=== PATIENT | male | born 1955 | race Caucasian/White ===

== ENCOUNTER 2019-05-27 15:01 | Observation (INO) | payer MEDICARE ==
[2019-05-27] MEDS ORDERED: SODIUM CHLORIDE 0.9% 1,000 ML IV STA (16:03)
[2019-05-27] MEDS ORDERED: SODIUM CHLORIDE 0.9% 500 ML 500 ML IV STA (16:07)
[2019-05-27 16:10] LABS: Basophils # (A) 0.1 k/uL (0-0.2); Basophils % (A) 1 %; Eosinophils % (A) 0 %; HGB 15.2 gm/dL (13.0-17.5); Lymphocytes # (A) 1.4 k/uL (1.0-4.8); Lymphocytes % (A) 13 %; MCH 33.7 pg (25.0-35.0); MCV 102.2 fL (80.0-100.0); Macrocytosis Slight; Mean Platelet Volume 7.2; Monocytes % (A) 9 %; Neutrophils # (A) 7.7 k/uL (1.3-7.7); Neutrophils % (A) 75 %; Platelet Count 162 k/uL (150-450); RBC 4.51 m/uL (4.30-5.90); RDW 13.3 % (11.5-15.5); WBC 10.3 k/uL (3.8-10.6)
[2019-05-27 16:29] LABS: ALT 22 U/L (4-49); AST 59 U/L (17-59); African American GFR (CKD) >90 (>60 ml/min/1.73 sqM); Albumin 2.9 g/dL (3.5-5.0); Alkaline Phosphatase 138 U/L (38-126); Anion Gap 9 mmol/L; Bilirubin,Unconjugated 1.4 mg/dL (0.0-1.1); Blood Urea Nitrogen 6 mg/dL (9-20); Calcium 8.3 mg/dL (8.4-10.2); Carbon Dioxide 21 mmol/L (22-30); Chloride 101 mmol/L (98-107); Glucose 107 mg/dL (74-99); Non-African American GFR(CKD) >90 (>60 ml/min/1.73 sqM); Potassium 4.2 mmol/L (3.5-5.1); Sodium 131 mmol/L (137-145); Total Bilirubin 2.4 mg/dL (0.2-1.3); Total Protein 7.3 g/dL (6.3-8.2)
--- NOTE | 2019-05-27 16:47 | ED ---
General Adult HPI - General Chief complaint: Recheck/Abnormal Lab/Rx Stated complaint: Needs stomach drained, sent by Time Seen by Provider: 05/27/19 16:03 Source: patient Mode of arrival: ambulatory Limitations: no limitations - History of Present Illness Initial comments: Dictation was produced using [employer] dictation software. please excuse any grammatical, word or spelling errors. Chief Complaint: 63-year-old male with past medical history of alcohol abuse, liver cirrhosis presents with abdominal distention. History of Present Illness: C3-year-old male he has past medical history of cirrhosis and liver disease. Patient states that 4-5 years ago he had paracentesis performed at [facility]. Since then patient has not needed any sort paracenteses. Patient quit drinking at that time. As of late patient has been drinking alcohol on a regular basis. He states he is drinking approximately 3-4 beers a day. Denies any history of EtOH withdrawals. Last beer intake was earlier today. Patient denies any fever, chills or night sweats. States that he came today because he's been putting off to have paracen tesis performed. The ROS documented in this emergency department record has been reviewed and confirmed by me. Those systems with pertinent positive or negative responses have been documented in the HPI. All other systems are other negative and/or noncontributory. PHYSICAL EXAM: General Impression: Alert and oriented x3, not in acute distress HEENT: Normocephalic atraumatic, extra-ocular movements intact, pupils equal and reactive to light bilaterally, mucous membranes moist. Cardiovascular: Heart regular rate and rhythm, S1&S2 audible, no murmurs, rubs or gallops Chest: Lungs clear to auscultation bilaterally, no rhonchi, no wheeze, no rales Abdomen: Bowel sounds present, distended abdomen, positive fluid wave Musculoskeletal: Pulses present and equal in all extremities, no peripheral edema Motor: no focal deficits noted Neurological: CN II-XII grossly intact, no focal motor or sensory deficits noted Skin: Intact with no visualized rashes Psych: Normal affect and mood ED course: 63-year-old male presents with clinical presentation consistent with symptomatic ascites vital signs upon arrival shows heart rate of 111 rest of vital signs within acceptable limits. Abdomen evaluation obtained. CBC unremarkable. Coag panel unremarkable. Metabolic panel shows sodium 131. Patient does have a lactic acidosis of 3.3 however this is secondary to liver disease. Alk phos 138. No concern for spontaneous bacterial peritonitis. Patient with a presentation consistent with symptomatic ascites. Patient will be admitted with consultation to interventional radiology for paracentesis. Discussed patient case with Dr. Frey is willing to accept patients care. - Related Data Home Medications Medication Instructions Recorded Confirmed No Known Home Medications 05/27/19 05/27/19 Allergies Allergy/AdvReac Type Severity Reaction Status Date / Time No Known Allergies Allergy Verified 05/27/19 16:59 Review of Systems ROS Statement: Those systems with pertinent positive or pertinent negative responses have been documented in the HPI. ROS Other: All systems not noted in ROS Statement are negative. Past Medical History Past Medical History: Liver Disease History of Any Multi-Drug Resistant Organisms: None Reported Past Surgical History: No Surgical Hx Reported Past Psychological History: No Psychological Hx Reported Smoking Status: Current every day smoker Past Alcohol Use History: Daily Past Drug Use History: None Reported General Exam Limitations: no limitations Course Vital Signs 05/27/19 05/27/19 05/27/19 15:16 15:20 16:15 Temperature 97.9 F 98.1 F Pulse Rate 111 H 99 Respiratory 22 28 H 20 Rate Blood Pressure 150/88 139/91 O2 Sat by Pulse 96 97 Oximetry Medical Decision Making - Lab Data Result diagrams: 05/27/19 15:48 05/27/19 15:48 Lab Results 05/27/19 05/27/19 05/27/19 Range/Units 15:48 15:48 15:48 WBC 10.3 (3.8-10.6) k/uL RBC 4.51 (4.30-5.90) m/uL Hgb 15.2 (13.0-17.5) gm/dL Hct 46.0 (39.0-53.0) % MCV 102.2 H (80.0-100.0) fL MCH 33.7 (25.0-35.0) pg MCHC 33.0 (31.0-37.0) g/dL RDW 13.3 (11.5-15.5) % Plt Count 162 (150-450) k/uL Neutrophils % 75 % Lymphocytes % 13 % Monocytes % 9 % Eosinophils % 0 % Basophils % 1 % Neutrophils # 7.7 (1.3-7.7) k/uL Lymphocytes # 1.4 (1.0-4.8) k/uL Monocytes # 1.0 (0-1.0) k/uL Eosinophils # 0.0 (0-0.7) k/uL Basophils # 0.1 (0-0.2) k/uL Macrocytosis Slight PT (9.0-12.0) sec INR (<1.2) APTT (22.0-30.0) sec Sodium 131 L (137-145) mmol/L Potassium 4.2 (3.5-5.1) mmol/L Chloride 101 (98-107) mmol/L Carbon Dioxide 21 L (22-30) mmol/L Anion Gap 9 mmol/L BUN 6 L (9-20) mg/dL Creatinine 0.63 L (0.66-1.25) mg/dL Est GFR (CKD-EPI)AfAm >90 (>60 ml/min/1.73 sqM) Est GFR (CKD-EPI)NonAf >90 (>60 ml/min/1.73 sqM) Glucose 107 H (74-99) mg/dL Plasma Lactic Acid Paul 3.3 H* (0.7-2.0) mmol/L Calcium 8.3 L (8.4-10.2) mg/dL Total Bilirubin 2.4 H (0.2-1.3) mg/dL Conjugated Bilirubin 0.0 (0.0-0.3) mg/dL Unconjugated Bilirubin 1.4 H (0.0-1.1) mg/dL Delta Bilirubin 1.0 H (0.0-0.2) mg/dL AST 59 (17-59) U/L ALT 22 (4-49) U/L Alkaline Phosphatase 138 H (38-126) U/L Total Protein 7.3 (6.3-8.2) g/dL Albumin 2.9 L (3.5-5.0) g/dL Lipase 155 (23-300) U/L 05/27/19 Range/Units 15:48 WBC (3.8-10.6) k/uL RBC (4.30-5.90) m/uL Hgb (13.0-17.5) gm/dL Hct (39.0-53.0) % MCV (80.0-100.0) fL MCH (25.0-35.0) pg MCHC (31.0-37.0) g/dL RDW (11.5-15.5) % Plt Count (150-450) k/uL Neutrophils % % Lymphocytes % % Monocytes % % Eosinophils % % Basophils % % Neutrophils # (1.3-7.7) k/uL Lymphocytes # (1.0-4.8) k/uL Monocytes # (0-1.0) k/uL Eosinophils # (0-0.7) k/uL Basophils # (0-0.2) k/uL Macrocytosis PT 11.9 (9.0-12.0) sec INR 1.1 (<1.2) APTT 31.3 H (22.0-30.0) sec Sodium (137-145) mmol/L Potassium (3.5-5.1) mmol/L Chloride (98-107) mmol/L Carbon Dioxide (22-30) mmol/L Anion Gap mmol/L BUN (9-20) mg/dL Creatinine (0.66-1.25) mg/dL Est GFR (CKD-EPI)AfAm (>60 ml/min/1.73 sqM) Est GFR (CKD-EPI)NonAf (>60 ml/min/1.73 sqM) Glucose (74-99) mg/dL Plasma Lactic Acid Paul (0.7-2.0) mmol/L Calcium (8.4-10.2) mg/dL Total Bilirubin (0.2-1.3) mg/dL Conjugated Bilirubin (0.0-0.3) mg/dL Unconjugated Bilirubin (0.0-1.1) mg/dL Delta Bilirubin (0.0-0.2) mg/dL AST (17-59) U/L ALT (4-49) U/L Alkaline Phosphatase (38-126) U/L Total Protein (6.3-8.2) g/dL Albumin (3.5-5.0) g/dL Lipase (23-300) U/L Disposition Clinical Impression: Ascites Disposition: ADMITTED IP TO THIS HOSP Condition: Fair Referrals: Lanre Parisi MD [Primary Care Provider] - 1-2 days Decision Time: 17:46
[2019-05-27 16:55] LABS: INR 1.1 (<1.2); Partial Thromboplastin Time 31.3 sec (22.0-30.0); Prothrombin Time 11.9 sec (9.0-12.0)
[2019-05-27] MEDS ORDERED: NALOXONE 0.4 MG/ML 1 ML VIAL IV PRN (17:44)
[2019-05-27] MEDS ORDERED: SODIUM CHLORIDE 0.9% 1,000 ML IV SCH (17:45)
[2019-05-27] MEDS: DIAZEPAM 2 MG TAB PO SCH (22:11)
[2019-05-28] MEDS: DIAZEPAM 2 MG TAB PO SCH ×3 (09:03→20:38)
--- NOTE | 2019-05-28 09:15 | US ---
EXAMINATION TYPE: US abdomen limited DATE OF EXAM: 05/28/2019 COMPARISON: NONE CLINICAL HISTORY: assess for fluid pocket please. Large amount of ascites visualized. Largest fluid pocket appears to be in the right lower quadrant al though fluid is present throughout all 4 quadrants. IMPRESSION: 1. Large appearing volume ascites present.
[2019-05-28] MEDS: ALBUMIN HUMAN 25% 50 ML in EMPTY BAG 1 BAG IVPB SCH ×4 (12:47→15:44)
--- NOTE | 2019-05-28 13:27 | US ---
Therapeutic and diagnostic paracentesis. DATE OF EXAM: 05/28/2019 CLINICAL HISTORY: Ascites The procedure was discussed with the patient. The risks, complications, benefits, and alternatives we re discussed and any questions were answered. Informed consent was obtained. The patient was placed s upine on the ultrasound table and prepped and draped in the usual sterile fashion. All elements of maximal barrier technique were utilized. Under ultrasound guidance, access into the right lower quadrant was obtained, via the paracentesis catheter system and direct ultrasound guidanc e. Approximately 8.7 liters of straw-colored fluid was removed. The patient was stable throughout the pr ocedure and remained stable upon discharge from Department of Radiology. IMPRESSION: Successful paracentesis under ultrasound guidance.
[2019-05-28 15:05] LABS: Appearance,BF Hazy; Color,BF Yellow; Nucleated Cells, Body Fluid 121 /uL; RBC, Body Fluid 105 /uL
[2019-05-28 15:15] LABS: Mononuclear WBC,Body Fluid 92 %; Polynuclear WBC,Body Fluid 8 %; Total Cells Counted,Body Fluid 100
[2019-05-28 20:34] LABS: Albumin, Fluid Source Peritoneal Fluid
--- NOTE | 2019-05-29 00:44 | P.HPIM ---
History of Present Illness H&P Date: 05/28/19 Chief Complaint: Enlarging abdomen History of presenting complaint: This is 63-year-old patient of Dr. españa. About 5 years ago he had a large volume paracentesis done at [facility]. Did not follow-up after the same. Patient was drinking alcohol prolonged time. Still drinking about 3- 5 beers a day. Has progressively noticed increasing swelling of the lower extremity. Also distending abdomen. No fever no chills. No abdominal pain. Breathing slightly affected. Intervention radiology consultation was done for large foreign paracentesis. Later today 8.7 L was removed. Albumin was given. Patient also is a smoker. No fever no chills. Tired rundown. Review of systems: GEN.: Tired EYES: None HEENT: None NECK: None RESPIRATORY: Some shortness of breath CARDIOVASCULAR: Edema GASTROINTESTINAL: [Abdominal distention GENITOURINARY: None MUSCULOSKELETAL: None LYMPHATICS: None HEMATOLOGICAL: None PSYCHIATRY: None NEUROLOGICAL: None Past medical history: Liver disease with ascites Social history: Lives alone. Retired painter apprentice. Was drinking more in the past. Down to 3-5 beers a day. Smokes a pack and half a day for many years. Physical examination: VITAL SIGNS: 97.9, 111, 22, 150/88, 96% on room air GENERAL: Average built, sitting up, comfortable with scattered spider nevi. EYES: [Pupils equal. Conjunctiva dirty appearing l. HEENT: External appearance of nose and ears normal, oral cavity grossly normal. NECK: JVD not raised; masses not palpable. HEART: [First and second heart sounds are normal; edema present. LUNGS: Respiratory rate increased, decreased breath sounds. ABDOMEN: Soft, distended, dullness to percussion in the flanks, liver spleen not palpable, no masses palpable. PSYCH: Alert and oriented x3; mood and affect normal. NEUROLOGICAL: Cranial nerves grossly intact; no facial asymmetry, power and sensation grossly intact. LYMPHATICS: No lymph nodes palpable in the axilla and neck INVESTIGATIONS, reviewed in the clinical context: White count 10.3 hemoglobin 15.2 potassium 4.216 creatinine 0.63 lactic acid 3.3 total bilirubin 2.4 Albumin 2.9 Assessment: -Alcoholic liver disease but signs of chronic liver disease -Ascites secondary to alcoholic liver disease, status post large volume para centesis 8.7 L was removed -Hypoalbuminemia possibly from White protein calorie malnutrition and from liver disease -Chronic nicotine dependence patient cigarette smoker -Chronic alcohol dependence -COPD in a current smoker Plan: Patient underwent large followed paracentesis later this afternoon. 8.7 L of fluid was removed. Patient be started on Aldactone 100 mg twice a day. No sodium diet. Fluid restriction of 2000 mL a day. Also start the patient on nebulized bronchodilators and oral steroids. Care was discussed with the patient question were answered. Patient will follow-up with GI as an outpatient. Past Medical History Past Medical History: Liver Disease History of Any Multi-Drug Resistant Organisms: None Reported Past Surgical History: No Surgical Hx Reported Past Anesthesia/Blood Transfusion Reactions: No Reported Reaction Past Psychological History: No Psychological Hx Reported Smoking Status: Current every day smoker Past Alcohol Use History: Daily Past Drug Use History: None Reported - Past Family History Mother Family Medical History: Cancer, Diabetes Mellitus Medications and Allergies Home Medications Medication Instructions Recorded Confirmed Type No Known Home Medications 05/27/19 05/27/19 History Allergies Allergy/AdvReac Type Severity Reaction Status Date / Time No Known Allergies Allergy Verified 05/27/19 16:59 Physical Exam Vitals: Vital Signs Temp Pulse Pulse Resp BP BP Pulse Ox 05/28/19 10:42 97.7 F 83 14 119/68 98 05/28/19 05:26 98.4 F 86 15 94/57 91 L 05/27/19 22:05 98.4 F 92 17 120/73 93 L 05/27/19 18:43 97 20 138/83 93 L 05/27/19 16:15 20 05/27/19 15:20 98.1 F 99 28 H 139/91 97 05/27/19 15:16 97.9 F 111 H 22 150/88 96 Intake and Output 05/27/19 05/28/19 05/28/19 22:59 06:59 14:59 Intake Total 60 Balance 60 Intake: Intake, IV Titration 60 Amount Sodium Chloride 0.9% 1, 60 000 ml @ 20 mls/hr IV . Q24H STA Rx#:[id number] Other: # Voids 2 Weight 79.333 kg Results CBC & Chem 7: 05/27/19 15:48 05/27/19 15:48 Labs: Abnormal Lab Results - Last 24 Hours (Table) 05/27/19 05/27/19 05/27/19 Range/Units 15:48 15:48 15:48 MCV 102.2 H (80.0-100.0) fL APTT (22.0-30.0) sec Sodium 131 L (137-145) mmol/L Carbon Dioxide 21 L (22-30) mmol/L BUN 6 L (9-20) mg/dL Creatinine 0.63 L (0.66-1.25) mg/dL Glucose 107 H (74-99) mg/dL Plasma Lactic Acid Paul 3.3 H* (0.7-2.0) mmol/L Calcium 8.3 L (8.4-10.2) mg/dL Total Bilirubin 2.4 H (0.2-1.3) mg/dL Unconjugated Bilirubin 1.4 H (0.0-1.1) mg/dL Delta Bilirubin 1.0 H (0.0-0.2) mg/dL Alkaline Phosphatase 138 H (38-126) U/L Albumin 2.9 L (3.5-5.0) g/dL 05/27/19 Range/Units 15:48 MCV (80.0-100.0) fL APTT 31.3 H (22.0-30.0) sec Sodium (137-145) mmol/L Carbon Dioxide (22-30) mmol/L BUN (9-20) mg/dL Creatinine (0.66-1.25) mg/dL Glucose (74-99) mg/dL Plasma Lactic Acid Paul (0.7-2.0) mmol/L Calcium (8.4-10.2) mg/dL Total Bilirubin (0.2-1.3) mg/dL Unconjugated Bilirubin (0.0-1.1) mg/dL Delta Bilirubin (0.0-0.2) mg/dL Alkaline Phosphatase (38-126) U/L Albumin (3.5-5.0) g/dL Thrombosis Risk Factor Assmnt - Choose All That Apply Any of the Below Risk Factors Present?: Yes Each Factor Represents 1 point: Minor surgery planned, Obesity (BMI >25), Swollen legs (current) Other Risk Factors: Yes Each Risk Factor Represents 2 Points: Age 61-74 years Other congenital or acquired thrombophilia - If yes, enter type in comment: No Thrombosis Risk Factor Assessment Total Risk Factor Score: 5 Thrombosis Risk Factor Assessment Level: High Risk
[2019-05-29 07:53] LABS: African American GFR (CKD) >90 (>60 ml/min/1.73 sqM); Anion Gap 6 mmol/L; Blood Urea Nitrogen 8 mg/dL (9-20); Calcium 7.8 mg/dL (8.4-10.2); Carbon Dioxide 24 mmol/L (22-30); Chloride 103 mmol/L (98-107); Glucose 124 mg/dL (74-99); Magnesium 2.2 mg/dL (1.6-2.3); Non-African American GFR(CKD) >90 (>60 ml/min/1.73 sqM); Sodium 133 mmol/L (137-145)
[2019-05-29] MEDS ORDERED: BUDESONIDE 1 MG/2 ML NEBU INHALATION SCH (08:00)
--- NOTE | 2019-05-29 08:37 | US ---
EXAMINATION TYPE: US abdomen limited DATE OF EXAM: 05/29/2019 COMPARISON: Previous limited study dated 05/28/2019. CLINICAL HISTORY: assess liver. EXAM MEASUREMENTS: Liver Length: 16.0 cm Gallbladder Wall: 0.7 cm CBD: 0.4 cm Right Kidney: 9.7 x 4.8 x 5.5 cm Pancreas: not visualized due to midline bowel gas Liver: wnl Gallbladder: No stones seen Evidence for sonographic Dotson's sign: No CBD: wnl Right Kidney: No hydronephrosis or masses seen free fluid noted around liver. There is a marked reduction in the degree of ascites. There continues to be a small amount of ascites adjacent to the liver. Liver size is normal. There is no biliary dilatation. The gallbladder is unremarkable without evidence of cholelithiasis. Gallbladder wall appears thickene d measuring 7 mm. The distal common hepatic duct more millimeters. The pancreas is not visualized. Th e right kidney is unremarkable. IMPRESSION: 1. MARKED REDUCTION IN THE DEGREE OF ASCITES. 2. THICKENING GALLBLADDER WALL IS NOT TOTALLY RELIABLE IN THE PRESENCE OF ASCITES.
[2019-05-29] MEDS ORDERED: SPIRONOLACTONE 25 MG TAB PO SCH (09:00)
[2019-05-29] MEDS ORDERED: predniSONE 20 MG TAB PO SCH (09:00)
[2019-05-29] MEDS: IPRATROPIUM-ALBUTEROL 3 ML NEB INHALATION SCH ×2 (09:08→12:36)
[2019-05-29] MEDS: DIAZEPAM 2 MG TAB PO SCH (09:33)
[2019-05-29 13:48] VITALS: BP 108/70; PULSE 87; RESP 18; TEMP 98
--- NOTE | 2019-05-30 00:30 | P.DS ---
Providers Date of admission: 05/27/19 17:44 Expected date of discharge: 05/29/19 Attending physician: Jones Frey Primary care physician: Lanre Parisi [facility] Course: Chief Complaint: Enlarging abdomen Hospital course: This is 63-year-old patient of Dr. parisi. About 5 years ago he had a large volume paracentesis done at [facility]. Did not follow-up after the same. Patient was drinking alcohol prolonged time. Still drinking about 3- 5 beers a day. Has progressively noticed increasing swelling of the lower extremity. Also distending abdomen. No fever no chills. No abdominal pain. Breathing slightly affected. Intervention radiology consultation was done for large volume paracentesis. 8.7 L was removed. Albumin was given. Patient also is a smoker. No fever no chills. Tired rundown. care was discussed in length with the patient. Told for complete abstinence from alcohol. Doing better. Up and about. Edema swelling is gone down.we'll follow with GI in the office Consultation: Interventional radiology Physical examination: VITAL SIGNS: 98, 87, 18, 108/70, 94% room air GENERAL: , sitting up, comfortable with scattered spider nevi. EYES: [Pupils equal. Conjunctiva dirty appearing l. HEENT: External appearance of nose and ears normal, oral cavity grossly normal. NECK: JVD not raised; masses not palpable. HEART: [First and second heart sounds are normal; edema present. LUNGS: Respiratory rate increased, decreased breath sounds. ABDOMEN: Soft, less distended, dullness to percussion in the flanks, liver spleen not palpable, no masses palpable. PSYCH: Alert and oriented x3; mood and affect normal. INVESTIGATIONS, reviewed in the clinical context: White count 10.3 hemoglobin 15.2 potassium 4.216 creatinine 0.63 lactic acid 3.3 total bilirubin 2.4 Albumin 2.9 Assessment: -Alcoholic liver disease but signs of chronic liver disease -Ascites secondary to alcoholic liver disease, status post large volume paracentesis 8.7 L was removed -Hypoalbuminemia possibly from White protein calorie malnutrition and from liver disease -Chronic nicotine dependence patient cigarette smoker -Chronic alcohol dependence -COPD in a current smoker -Peritoneal fluid cytology pending disposition: Home Patient Condition at Discharge: Stable Plan - Discharge Summary New Discharge Prescriptions: New Albuterol Sulfate [Albuterol Sulfate Hfa] 1 puff PO Q4-6H PRN #1 inhaler PRN Reason: Wheezing Spironolactone [Aldactone] 100 mg PO BID #60 tab Ipratropium [place] [Atrovent Hfa] 2 puff INHALATION TID #1 inhaler Discharge Medication List Albuterol Sulfate [Albuterol Sulfate Hfa] 1 puff PO Q4-6H PRN #1 inhaler 05/29/19 [Rx] Ipratropium [place] [Atrovent Hfa] 2 puff INHALATION TID #1 inhaler 05/29/19 [Rx] Spironolactone [Aldactone] 100 mg PO BID #60 tab 05/29/19 [Rx] Follow up Appointment(s)/Referral(s): Lanre Parisi MD [Primary Care Provider] - 1-2 days Obi Jones MD [STAFF PHYSICIAN] - 1 Week Patient Instructions/Handouts: Ascites (DC) Activity/Diet/Wound Care/Special Instructions: Low salt diet Fluid restriction 2000 mL a day BMP 5 days Discharge Disposition: HOME SELF-CARE
== END 2019-05-29 14:56 | disposition home or self-care (01) ==
LOC: EC 15:01 → 6NMEDSUR 17:44
PROVIDERS: ADMIT Hospitalist; ATTEND Hospitalist
DX: R18.8 Other ascites (principal); K70.9 Alcoholic liver disease, unspecified; E88.09 Other disorders of plasma-protein metabolism, not elsewhere classified; F10.20 Alcohol dependence, uncomplicated; E87.2 Acidosis; F17.210 Nicotine dependence, cigarettes, uncomplicated; J44.9 Chronic obstructive pulmonary disease, unspecified; M79.89 Other specified soft tissue disorders; Z83.3 Family history of diabetes mellitus
CPT/HCPCS: 36415; 94640; 88108; 88305; 80053; 80048; 82042; 89050; 82248; 83605; 83690; 83735; 85025; 85610; 85730; 87070; 87205; 87075; 76705 ×2; 49083; G0378 ×3; P9047; J7512

== ENCOUNTER → 2019-06-01 | Outpatient (CLI) | payer MEDICARE ==
[2019-06-01 12:49] LABS: Basophils # (A) 0.1 k/uL (0-0.2); Basophils % (A) 1 %; Eosinophils # (A) 0.1 k/uL (0-0.7); Eosinophils % (A) 1 %; HCT 43.5 % (39.0-53.0); HGB 14.3 gm/dL (13.0-17.5); Lymphocytes # (A) 1.6 k/uL (1.0-4.8); Lymphocytes % (A) 17 %; MCH 33.8 pg (25.0-35.0); MCHC 32.7 g/dL (31.0-37.0); MCV 103.2 fL (80.0-100.0); Macrocytosis Slight; Mean Platelet Volume 6.8; Monocytes # (A) 0.8 k/uL (0-1.0); Monocytes % (A) 8 %; Neutrophils # (A) 6.8 k/uL (1.3-7.7); Neutrophils % (A) 73 %; Platelet Count 150 k/uL (150-450); RBC 4.22 m/uL (4.30-5.90); RDW 13.4 % (11.5-15.5); WBC 9.4 k/uL (3.8-10.6)
== END | disposition home or self-care (01) ==
LOC: LABWHC1 12:07
PROVIDERS: ATTEND Family Medicine
DX: K70.31 Alcoholic cirrhosis of liver with ascites (principal); R53.82 Chronic fatigue, unspecified
CPT/HCPCS: 36415; 82105; 82140; 82306; 82607; 82977; 85025

== ENCOUNTER → 2019-06-17 | Outpatient (CLI) | payer MEDICARE ==
[2019-06-17 12:26] LABS: Basophils % (A) 0 %; Eosinophils # (A) 0.1 k/uL (0-0.7); Eosinophils % (A) 2 %; HCT 44.8 % (39.0-53.0); HGB 14.3 gm/dL (13.0-17.5); Lymphocytes # (A) 2.1 k/uL (1.0-4.8); Lymphocytes % (A) 27 %; MCH 32.5 pg (25.0-35.0); MCHC 31.9 g/dL (31.0-37.0); MCV 101.7 fL (80.0-100.0); Mean Platelet Volume 6.8; Monocytes # (A) 0.6 k/uL (0-1.0); Monocytes % (A) 8 %; Neutrophils # (A) 4.6 k/uL (1.3-7.7); Neutrophils % (A) 60 %; Platelet Count 227 k/uL (150-450); RBC 4.41 m/uL (4.30-5.90); RDW 12.9 % (11.5-15.5); WBC 7.6 k/uL (3.8-10.6)
[2019-06-17 19:08] LABS: African American GFR (CKD) 103.5 (60.0-200.0); Albumin 3.1 g/dL (3.80-4.90); Albumin/Globulin Ratio 0.84 (1.60-3.17); Anion Gap 8.4 mmol/L (4.00-12.00); BUN/Creat Ratio 13.33 Ratio (12.00-20.00); Calcium 8.9 mg/dL (8.7-10.3); Carbon Dioxide 24.6 mmol/L (21.6-31.8); Globulin 3.7 g/dL (1.6-3.3); Non-African American GFR(CKD) 89.3 (60.0-200.0); Potassium 3.8 mmol/L (3.5-5.5); Total Bilirubin 0.9 mg/dL (0.2-1.2); Total Protein 6.8 g/dL (6.2-8.2)
[2019-06-17 20:21] LABS: Hepatitis A Antibody IgM Non-Reactive (Non-Reactive); Hepatitis B Core IgM Non-Reactive (Non-Reactive); Hepatitis B Surface Antigen Non-Reactive (Non-Reactive); Hepatitis C IgG Antibody Non-Reactive (Non-Reactive)
== END | disposition home or self-care (01) ==
LOC: LABWHC1 11:37
PROVIDERS: ATTEND Nurse Practitioner
DX: K70.31 Alcoholic cirrhosis of liver with ascites (principal)
CPT/HCPCS: 36415; 80053; 80074; 82140; 85025

== ENCOUNTER → 2019-07-14 | Outpatient (CLI) | payer MEDICARE | END | disposition home or self-care (01) | LOC: LABWHC1 12:32 | PROVIDERS: ATTEND Nurse Practitioner | DX: K70.31 Alcoholic cirrhosis of liver with ascites (principal) | CPT/HCPCS: 36415; 82140 ==

== ENCOUNTER → 2019-11-12 | Outpatient (CLI) | payer MEDICARE ==
--- NOTE | 2019-11-12 13:00 | ECHOF ---
Referral Reason:K70.31 alcoholic cirrhosis of liver with ascites MEASUREMENTS -------- HEIGHT: 172.7 cm WEIGHT: 65.8 kg BP: RVIDd: 3.3 cm (< 3.3) IVSd: 1.3 cm (0.6 - 1.1) LVIDd: 3.7 cm (3.9 - 5.3) LVPWd: 1.4 cm (0.6 - 1.1) IVSs: 1.8 cm LVIDs: 2.8 cm LVPWs: 1.8 cm LA Diam: 3.3 cm (2.7 - 3.8) LAESV Index (A-L): 22.31 ml/m Ao Diam: 3.7 cm (2.0 - 3.7) AV Cusp: 2.4 cm (1.5 - 2.6) MV EXCURSION: 11.820 mm (> 18.000) MV EF SLOPE: 19 mm/s (70 - 150) EPSS: 0.6 cm MV E Liu: 0.68 m/s MV DecT: 237 ms MV A Liu: 0.80 m/s MV E/A Ratio: 0.85 FINDINGS -------- Sinus rhythm. This was a technically good study. The left ventricular size is normal. There is moderate concentric left ventricular hypertrophy. O verall left ventricular systolic function is mild-moderately impaired with, an EF between 40 - 45 %. Mid inferoseptal LV wall motion is hypokinetic. Apical inferior LV wall motion is hypokinetic. Apical septum LV wall motion is hypokinetic. The right ventricle is mildly enlarged. Normal LA size by volume 22+/-6 ml/m2. The right atrium is normal in size. Aneurysmal Interatrial septum. The aortic valve is trileaflet and appears structurally normal. The mitral valve is normal. The tricuspid valve appears structurally normal. The pulmonic valve was not well visualized. The aortic root size is normal. Normal inferior vena cava with normal inspiratory collapse consistent with estimated right atrial pre ssure of 5 mmHg. There is no pericardial effusion. CONCLUSIONS -------- 1. Sinus rhythm. 2. This was a technically good study. 3. The left ventricular size is normal. 4. There is moderate concentric left ventricular hypertrophy. 5. Overall left ventricular systolic function is mild-moderately impaired with, an EF between 40 - 45 %. 6. Mid inferoseptal LV wall motion is hypokinetic. 7. Apical inferior LV wall motion is hypokinetic. 8. Apical septum LV wall motion is hypokinetic. 9. The right ventricle is mildly enlarged. 10. Normal LA size by volume 22+/-6 ml/m2. 11. The right atrium is normal in size. 12. Aneurysmal Interatrial septum. 13. The aortic valve is trileaflet and appears structurally normal. 14. The mitral valve is normal. 15. The tricuspid valve appears structurally normal. 16. The pulmonic valve was not well visualized. 17. The aortic root size is normal. 18. Normal inferior vena cava with normal inspiratory collapse consistent with estimated right atrial pressure of 5 mmHg. 19. There is no pericardial effusion. MAP DRAFTER: Abbey Rodriguez RDCS
== END | disposition home or self-care (01) ==
LOC: RADECHMAIN 10:32
PROVIDERS: ATTEND Family Medicine
DX: I51.7 Cardiomegaly (principal); I51.89 Other ill-defined heart diseases; I25.3 Aneurysm of heart; K70.31 Alcoholic cirrhosis of liver with ascites
CPT/HCPCS: 93306

== ENCOUNTER → 2019-11-16 | Outpatient (CLI) | payer MEDICARE ==
[2019-11-16 13:55] LABS: Basophils # (A) 0.1 k/uL (0-0.2); Basophils % (A) 1 %; Eosinophils # (A) 0.1 k/uL (0-0.7); Eosinophils % (A) 2 %; HCT 41.8 % (39.0-53.0); HGB 14.3 gm/dL (13.0-17.5); Lymphocytes # (A) 2.1 k/uL (1.0-4.8); Lymphocytes % (A) 25 %; MCH 32.8 pg (25.0-35.0); MCHC 34.1 g/dL (31.0-37.0); MCV 96.2 fL (80.0-100.0); Mean Platelet Volume 7.1; Monocytes # (A) 0.7 k/uL (0-1.0); Monocytes % (A) 9 %; Neutrophils # (A) 5.2 k/uL (1.3-7.7); Neutrophils % (A) 62 %; Platelet Count 205 k/uL (150-450); RBC 4.35 m/uL (4.30-5.90); RDW 13.5 % (11.5-15.5); WBC 8.4 k/uL (3.8-10.6)
[2019-11-16 18:33] LABS: Prothrombin Time 10.7 sec (9.9-11.9)
[2019-11-16 18:46] LABS: African American GFR (CKD) 90.5 (60.0-200.0); Albumin 4.3 g/dL (3.80-4.90); Albumin/Globulin Ratio 1.48 (1.60-3.17); Anion Gap 3.3 mmol/L (4.00-12.00); Calcium 9.7 mg/dL (8.7-10.3); Carbon Dioxide 25.7 mmol/L (21.6-31.8); Globulin 2.9 g/dL (1.6-3.3); Non-African American GFR(CKD) 78.1 (60.0-200.0); Potassium 4.5 mmol/L (3.5-5.5); Total Bilirubin 0.6 mg/dL (0.2-1.2); Total Protein 7.2 g/dL (6.2-8.2)
== END | disposition home or self-care (01) ==
LOC: LABWHC1 11:52
PROVIDERS: ATTEND Nurse Practitioner
DX: K70.31 Alcoholic cirrhosis of liver with ascites (principal)
CPT/HCPCS: 36415; 80053; 82105; 85025; 85610

== ENCOUNTER → 2023-06-18 | Outpatient (CLI) | payer MEDICARE ==
[2023-06-18 16:17] LABS: Basophils # (A) 0.05 X 10*3/uL (0.00-0.10); Basophils % (A) 0.5 %; Eosinophils # (A) 0.37 X 10*3/uL (0.04-0.35); Eosinophils % (A) 3.6 %; HCT 44.5 % (39.6-50.0); HGB 14.4 g/dL (13.0-17.0); Lymphocytes # (A) 2.09 X 10*3/uL (0.90-5.00); Lymphocytes % (A) 20.3 %; MCH 30.9 pg (27.0-32.0); MCHC 32.4 g/dL (32.0-37.0); MCV 95.5 FL (80.0-97.0); Mean Platelet Volume 10.3 FL (9.5-12.2); Monocytes # (A) 0.75 X 10*3/uL (0.20-1.00); Monocytes % (A) 7.3 %; NRBC Per 100 WBC 0 X 10*3/uL (0.00-0.01); Neutrophils # (A) 7.02 X 10*3/uL (1.80-7.70); Neutrophils % (A) 67.9 %; Platelet Count 193 X 10*3/uL (140-440); RBC 4.66 X 10*6/uL (4.40-5.60); RDW 13.1 % (11.5-14.5); WBC 10.32 X 10*3/uL (4.50-10.00)
[2023-06-18 16:18] LABS: ALT 17 U/L (10-49); AST 30 U/L (14-35); Albumin 4.6 g/dL (3.8-4.9); Alkaline Phosphatase 74 U/L (41-126); BUN/Creat Ratio 11.75 Ratio (12.00-20.00); Blood Urea Nitrogen 9.4 mg/dL (9.0-27.0); Calcium 9.9 mg/dL (8.7-10.3); Carbon Dioxide 24.6 mmol/L (21.6-31.8); Chloride 103 mmol/L (96-109); Globulin 2.7 g/dL (1.6-3.3); Glucose 104 mg/dL (70-110); Potassium 4.8 mmol/L (3.5-5.5); Sodium 139 mmol/L (135-145); Total Bilirubin 0.5 mg/dL (0.3-1.2); Total Protein 7.3 g/dL (6.2-8.2)
== END | disposition home or self-care (01) ==
LOC: LABWHC1 09:36
PROVIDERS: ATTEND Internal Medicine Gastroenterology
DX: K70.31 Alcoholic cirrhosis of liver with ascites (principal)
CPT/HCPCS: 36415; 80053; 82105; 85025

== ENCOUNTER 2023-09-25 12:02 | Inpatient (IN) | payer MEDICARE ==
--- NOTE | 2023-09-25 12:41 | ED ---
General Adult HPI - General Chief complaint: Skin/Abscess/Foreign Body Stated complaint: Shingles Time Seen by Provider: 09/25/23 12:12 Source: patient, RN notes reviewed Mode of arrival: ambulatory Limitations: no limitations - History of Present Illness Initial comments: 68 year old male presents to the emergency department for evaluation of shingles to left side of face. He states that he was sent in by his primary care provider for IV anti-virals. He notes that symptoms started with pain in his mouth. He saw his dentist following this. He notes that around 3 days ago he noticed a rash developing on the left side of his cheek and the top of his mouth. He saw a margin analyst for this yesterday and was given a steroid shot and PO antivirals. He saw his PCP today who was concerned about the rash encroaching on his left eye and the severe rash on the top of his mouth. Denies fever, chills at home. - Related Data Home Medications Medication Instructions Recorded Confirmed lidocaine HCL [lidocaine HCL 5 ml MUCOUS MEM TID PRN 09/25/23 09/25/23 Viscous] valACYclovir HCL [Valtrex] 1,000 mg PO TID 09/25/23 09/25/23 Allergies Allergy/AdvReac Type Severity Reaction Status Date / Time No Known Allergies Allergy Verified 09/25/23 15:04 Review of Systems ROS Statement: Those systems with pertinent positive or pertinent negative responses have been documented in the HPI. ROS Other: All systems not noted in ROS Statement are negative. Past Medical History Past Medical History: Liver Disease Additional Past Medical History / Comment(s): cirrhosis of liver History of Any Multi-Drug Resistant Organisms: None Reported Past Surgical History: No Surgical Hx Reported Past Anesthesia/Blood Transfusion Reactions: No Reported Reaction Past Psychological History: No Psychological Hx Reported Smoking Status: Current every day smoker Past Alcohol Use History: Occasional, Rare Past Drug Use History: None Reported - Past Family History Mother Family Medical History: Cancer, Diabetes Mellitus General Exam Limitations: no limitations General appearance: alert, in no apparent distress Head exam: Present: atraumatic, normocephalic, normal inspection Eye exam: Present: PERRL, EOMI, other (erythematous lower lid margin, fluorescien staining showed no visible corneal abnormality). Absent: scleral icterus, conjunctival injection, periorbital swelling ENT exam: Present: TM's normal bilaterally, normal external ear exam, other (Numerous vesicular lesions on the roof of of the patient's mouth on the left upper palate and on the patient's left cheek). Absent: normal exam, normal oropharynx, mucous membranes moist Respiratory exam: Present: normal lung sounds bilaterally. Absent: respiratory distress, wheezes, rales, rhonchi, stridor Cardiovascular Exam: Present: regular rate, normal rhythm, normal heart sounds. Absent: systolic murmur, diastolic murmur, rubs, gallop, clicks Back exam: Present: normal inspection Neurological exam: Present: alert, oriented X3 Psychiatric exam: Present: normal affect, normal mood Skin exam: Present: warm, dry, rash, vesicles, other (Numerous vesicular lesions on the roof of of the patient's mouth on the left upper palate and on the patient's left cheek). Absent: intact, normal color Course Vital Signs 09/25/23 09/25/23 09/25/23 12:07 14:30 18:08 Temperature 98.6 F Pulse Rate 80 76 72 Respiratory 16 20 16 Rate Blood Pressure 164/78 142/68 127/78 O2 Sat by Pulse 98 98 99 Oximetry Medical Decision Making - Medical Decision Making Was pt. sent in by a medical professional or institution (, PA, ADVERTISING INSERTER, urgent care, hospital, or snf...) When possible be specific @ -No Did you speak to anyone other than the patient for history (EMS, parent, family, police, friend...)? What history was obtained from this source @ -No Did you review nursing and triage notes (agree or disagree)? Why? @ -I reviewed and agree with nursing and triage notes Were old charts reviewed (outside hosp., previous admission, EMS record, old EKG, old radiological studies, urgent care reports/EKG's, snf records)? Report findings @ -No old charts were reviewed Differential Diagnosis (chest pain, altered mental status, abdominal pain women, abdominal pain men, vaginal bleeding, weakness, fever, dyspnea, syncope, headache, dizziness, GI bleed, back pain, seizure, CVA, palpatations, mental health, musculoskeletal)? @ -Differential Headache: Migraine, tension, cluster, carbon monoxide, central venous thrombosis, pension karma temporal arteritis, acute closure glaucoma, intercranial hemorrhage, mastoiditis, sinusitis, head injury, this is not meant to be an all-inclusive list. EKG interpreted by me (3pts min.). @ -None X-rays interpreted by me (1pt min.). @ -None done CT interpreted by me (1pt min.). @ -None done U/S interpreted by me (1pt. min.). @ -None done What testing was considered but not performed or refused? (CT, X-rays, U/S, labs)? Why? @ -None What meds were considered but not given or refused? Why? @ -None Did you discuss the management of the patient with other professionals (professionals i.e. DrErich, PA, ADVERTISING INSERTER, lab, RT, psych nurse, family welfare social work professor, nurse healthcare manager, teacher, first officer and flight instructor, case checker)? Give summary @ -Management was discussed with patient's primary care provider, Dr. Moya patient will be admitted with IV antivirals, infectious disease consultation Was smoking cessation discussed for >3mins.? @ -No Was critical care preformed (if so, how long)? @ -No Were there social determinants of health that impacted care today? How? (Homelessness, low income, unemployed, alcoholism, drug addiction, transportation, low edu. Level, literacy, decrease access to med. care, custodial, rehab)? @ -No Was there de-escalation of care discussed even if they declined (Discuss DNR or withdrawal of care, Hospice)? DNR status @ -No What co-morbidities impacted this encounter? (DM, HTN, Smoking, COPD, CAD, Can cer, CVA, ARF, Chemo, Hep., AIDS, mental health diagnosis, sleep apnea, morbid obesity)? @ -None Was patient admitted / discharged? Hospital course, mention meds given and route, prescriptions, significant lab abnormalities, going to OR and other pertinent info. @ -Admitted. Patient presented to the emergency department for evaluation of shingles on his face and the roof of his mouth. He saw his primary care provider today, Dr. Moya who advised the patient to come to the emergency department. Patient was evaluated, has severe case of herpes zoster with involvement of the mouth and encroaching on the patient's eye. Fluorescein staining was performed of the eye which showed no obvious corneal abnormality. Basic laboratory studies were obtained which are unremarkable. Patient was giv en a dose of gabapentin which helped his pain significantly and he was able to eat following this. He was also provided IV acyclovir. Patient will be started on IV acyclovir every 8 hours with infectious disease consultation. Discussed with Dr. Moya who will be in the admitting physician for the patient. Patient understanding agreeable with plan. Patient stable at time of admission. Case discussed with Dr. Ogden Undiagnosed new problem with uncertain prognosis? @ -No Drug Therapy requiring intensive monitoring for toxicity (Heparin, Nitro, Insulin, Cardizem)? @ -No Were any procedures done? @ -No Diagnosis/symptom? @ -Herpes zoster Acute, or Chronic, or Acute on Chronic? @ -Acute Uncomplicated (without systemic symptoms) or Complicated (systemic symptoms)? @ -Complicated Side effects of treatment? @ -No Exacerbation, Progression, or Severe Exacerbation? @ -No Poses a threat to life or bodily function? How? (Chest pain, [place], [place], pneumonia, PE, COPD, DKA, ARF, appy, cholecystitis, CVA, Diverticulitis, Homicidal, Suicidal, threat to staff... and all critical care pts) @ -No - Lab Data Result diagrams: 09/25/23 12:52 09/25/23 12:52 Lab Results 09/25/23 09/25/23 Range/Units 12:52 12:52 WBC 7.3 (3.8-10.6) k/uL RBC 4.69 (4.30-5.90) m/uL Hgb 14.6 (13.0-17.5) gm/dL Hct 43.6 (39.0-53.0) % MCV 93.1 (80.0-100.0) fL MCH 31.2 (25.0-35.0) pg MCHC 33.5 (31.0-37.0) g/dL RDW 12.8 (11.5-15.5) % Plt Count 106 L (150-450) k/uL MPV 7.7 Neutrophils % (Manual) 67 % Lymphocytes % (Manual) 29 % Monocytes % (Manual) 4 % Neutrophils # (Manual) 4.89 (1.3-7.7) k/uL Lymphocytes # (Manual) 2.12 (1.0-4.8) k/uL Monocytes # (Manual) 0.29 (0-1.0) k/uL Nucleated RBCs 0 (0-0) /100 WBC Manual Slide Review Performed Sodium 136 L (137-145) mmol/L Potassium 4.4 (3.5-5.1) mmol/L Chloride 105 (98-107) mmol/L Carbon Dioxide 21 L (22-30) mmol/L Anion Gap 10 mmol/L BUN 13 (9-20) mg/dL Creatinine 0.56 L (0.66-1.25) mg/dL Est GFR (CKD-EPI)AfAm >90 (>60 ml/min/1.73 sqM) Est GFR (CKD-EPI)NonAf >90 (>60 ml/min/1.73 sqM) Glucose 107 H (74-99) mg/dL Calcium 9.1 (8.4-10.2) mg/dL Total Bilirubin 0.9 (0.2-1.3) mg/dL AST 48 (17-59) U/L ALT 32 (4-49) U/L Alkaline Phosphatase 66 (38-126) U/L Total Protein 7.7 (6.3-8.2) g/dL Albumin 4.4 (3.5-5.0) g/dL Disposition Clinical Impression: Herpes zoster, Herpes zoster complicated Disposition: ADMITTED IP TO THIS [facility] Condition: Stable Is patient prescribed a controlled substance at d/c from ED?: No
[2023-09-25] MEDS: GABAPENTIN 300 MG CAP PO STA (12:48)
[2023-09-25] MEDS: PROPARACAINE 0.5% OPHTH DROPS 15 ML BTL LEFT EYE STA (12:48)
[2023-09-25] MEDS: FLUORESCEIN STRIPS 1 MG STRIP LEFT EYE ONE (12:48)
[2023-09-25 13:04] LABS: HCT 43.6 % (39.0-53.0); HGB 14.6 gm/dL (13.0-17.5); MCH 31.2 pg (25.0-35.0); MCHC 33.5 g/dL (31.0-37.0); MCV 93.1 fL (80.0-100.0); Mean Platelet Volume 7.7; Platelet Count 106 k/uL (150-450); RBC 4.69 m/uL (4.30-5.90); RDW 12.8 % (11.5-15.5); WBC 7.3 k/uL (3.8-10.6)
[2023-09-25 13:34] LABS: Lymphocytes # (M) 2.12 k/uL (1.0-4.8); Monocytes # (M) 0.29 k/uL (0-1.0); Neutrophils # (M) 4.89 k/uL (1.3-7.7); Neutrophils % (M) 67 %; Nucleated Red Blood Cells 0 /100 WBC (0-0); Total Cells Counted 100
[2023-09-25 13:38] LABS: ALT 32 U/L (4-49); AST 48 U/L (17-59); African American GFR (CKD) >90 (>60 ml/min/1.73 sqM); Albumin 4.4 g/dL (3.5-5.0); Alkaline Phosphatase 66 U/L (38-126); Anion Gap 10 mmol/L; Blood Urea Nitrogen 13 mg/dL (9-20); Calcium 9.1 mg/dL (8.4-10.2); Carbon Dioxide 21 mmol/L (22-30); Chloride 105 mmol/L (98-107); Glucose 107 mg/dL (74-99); Non-African American GFR(CKD) >90 (>60 ml/min/1.73 sqM); Sodium 136 mmol/L (137-145); Total Bilirubin 0.9 mg/dL (0.2-1.3); Total Protein 7.7 g/dL (6.3-8.2)
[2023-09-25 13:52] LABS: Potassium 4.4 mmol/L (3.5-5.1)
[2023-09-25] MEDS ORDERED: MORPHINE SULFATE 4 MG/ML SYRINGE IV PRN (14:40)
[2023-09-25] MEDS ORDERED: NALOXONE 0.4 MG/ML 1 ML VIAL IV PRN (14:40)
[2023-09-25] MEDS ORDERED: IBUPROFEN 400 MG TAB PO PRN (14:40)
[2023-09-25] MEDS: ACYCLOVIR SODIUM 500 MG in SODIUM CHLORIDE 0.9% 100 ML IVPB STA (15:24)
--- NOTE | 2023-09-25 17:03 | CT ---
EXAMINATION TYPE: CT brain wo con CT DLP: 1400.4 mGycm, Automated exposure control for dose reduction was used. DATE OF EXAM: 09/25/2023 4:32 PM COMPARISON: None.. CLINICAL INDICATION:Male, 68 years old with history of shingles, facial swelling, shingles TECHNIQUE: Brain: Axial CT images of the brain were obtained with coronal and sagittal reformats created and rev iewed. Contrast used: None. Oral contrast used: None. FINDINGS: Extra-axial spaces: No abnormal extra-axial fluid collections. Basilar cisterns are patent. Ventricular system: Ventricles appear dilated in proportion to the degree of cerebral atrophy. Cerebral parenchyma: No increased attenuation to suggest acute intraparenchymal hemorrhage. The gra y-white matter interface appears maintained. Mild/moderate generalized brain atrophy. White matter unremarkable by CT. Cerebellum: No acute abnormality. Mass effect: No evidence of mass effect or midline shift. Intracranial vasculature: Atherosclerotic calcifications of the larger arteries near the skull base. Soft tissues: Mild preseptal periorbital soft tissue swelling on the left, and towards the upper lip. Visualized orbits: Orbital contents appear grossly intact. No acute postseptal abnormality seen. Calvarium/osseous structures: No evidence of calvarial fracture. Paranasal sinuses and mastoid air cells: Mastoid air cells show no significant opacification. Scatte red paranasal sinus mucosal thickening, greatest in the left maxillary. No significant fluid accumula tion is seen. MRI is more sensitive for detecting acute processes such as infarct, and may be considered if clinica lly warranted. IMPRESSION: 1. No evidence of an acute intracranial CT abnormality. 2. Mild to moderate generalized brain atrophy. 3. Mild paranasal sinus mucosal thickening. 4. Mild preseptal periorbital soft tissue swelling on the left.
--- NOTE | 2023-09-25 17:11 | CT ---
EXAMINATION TYPE: CT facial bones wo con CT DLP: 1400.4 mGycm, Automated exposure control for dose reduction was used. DATE OF EXAM: 09/25/2023 4:32 PM COMPARISON: Correlation same day CT head. CLINICAL INDICATION:Male, 68 years old with history of shingles; PHH, facial swelling, shingles TECHNIQUE: Multiple unenhanced axial CT images were obtained of the facial bones soft tissue and bone windows. Coronal, axial and sagittal reformatted images were also provided in soft tissue and bone windows and submitted for interpretation. FINDINGS: Mild nasal septal deviation towards the left. No evidence of acute facial bone fracture. Temporal man dibular joints appear intact and normally aligned. Carious dentition noted. No evidence of orbital fracture. No retrobulbar hematoma or other intraorbital abnormality. Mild mucosal thickening in the paranasal sinuses, greatest in the left maxillary. No significant para nasal sinus fluid is identified. There is mild left periorbital preseptal soft tissue swelling, some extension to the bridge of the no se, also inferiorly to involve the upper lip. Soft tissues otherwise show no acute abnormality. Moderate to heavy calcification of the bilateral ce rvical carotid arteries, mostly in the bifurcation region. IMPRESSION: * No evidence of acute facial bone fracture. * Other chronic and likely incidental findings, as described above.
[2023-09-25] MEDS: SODIUM CHLORIDE 0.9% 1,000 ML IV SCH (17:19)
[2023-09-25] MEDS: AMPICILLIN-SULBACTAM 3 GM in SODIUM CHLORIDE 0.9% 100 ML IVPB SCH (18:33)
[2023-09-25] MEDS: GABAPENTIN 100 MG CAP PO SCH (20:42)
[2023-09-25] MEDS: KETOROLAC 15 MG/ML 1 ML VIAL IVP PRN (20:44)
--- NOTE | 2023-09-25 23:01 | P.CONS ---
History of Present Illness - Reason for Consult Consult date: 09/25/23 - History of Present Illness Patient is a 68-year-old male with a past medical history significant for cirrhosis of the liver, current everyday smoker recently did have a multiple tooth extraction patient starting developing swelling and rash to the left cheek area the pain has been going on for about 3 to 4 days patient has been complaining of significant burning and sharp pain to the affected area moderate to severe intensity without any radiation patient mention he did went to his dentist concerning for possible dental infection however he was diagnosed with shingles and [facility] with the patient was given a dose of IM steroid and B12 injection patient will be started on Valtrex the patient taken only 2 doses however now presenting to the [facility] ER for worsening swelling redness to the left facial area along with the pain patient has been eval by the ER physician on presentation to the hospital patient was afebrile patient was not tachycardic hypotensive or hypoxic he did have white count 7.3 creatinine 0.56 patient was started on IV acyclovir infectious disease was co nsulted for further management of antibiotic therapy Past Medical History Past Medical History: Liver Disease Additional Past Medical History / Comment(s): cirrhosis of liver History of Any Multi-Drug Resistant Organisms: None Reported Past Surgical History: No Surgical Hx Reported Past Anesthesia/Blood Transfusion Reactions: No Reported Reaction Past Psychological History: No Psychological Hx Reported Smoking Status: Current every day smoker Past Alcohol Use History: Occasional, Rare Past Drug Use History: None Reported - Past Family History Mother Family Medical History: Cancer, Diabetes Mellitus Medications and Allergies Home Medications Medication Instructions Recorded Confirmed Type lidocaine HCL [lidocaine HCL 5 ml MUCOUS MEM TID PRN 09/25/23 09/25/23 History Viscous] valACYclovir HCL [Valtrex] 1,000 mg PO TID 09/25/23 09/25/23 History Allergies Allergy/AdvReac Type Severity Reaction Status Date / Time No Known Allergies Allergy Verified 09/25/23 15:04 Physical Exam Vitals: Vital Signs Temp Pulse Resp BP Pulse Ox 09/25/23 14:30 76 20 142/68 98 09/25/23 12:07 98.6 F 80 16 164/78 98 Intake and Output 09/25/23 09/25/23 09/25/23 06:59 14:59 22:59 Other: Weight 53.524 kg Results CBC & Chem 7: 09/25/23 12:52 09/25/23 12:52 Labs: Abnormal Lab Results - Last 24 Hours (Table) 09/25/23 09/25/23 Range/Units 12:52 12:52 Plt Count 106 L (150-450) k/uL Sodium 136 L (137-145) mmol/L Carbon Dioxide 21 L (22-30) mmol/L Creatinine 0.56 L (0.66-1.25) mg/dL Glucose 107 H (74-99) mg/dL Assessment and Plan Plan: 1patient presented to hospital with extensive rash to the left facial area in the distribution of the maxillary division of the facial nerve concerning for herpes zoster. Patient did have significant erythema and concerning for secondary bacterial cellulitis also noted to have significant ulceration to the upper palate with a possible component of dental infection/abscess 2-patient has been started on IV acyclovir 10 mg/kg every 8 hours to continue while watching his kidney function closely 3-we will add Unasyn 3 g every 6 hours We will follow on clinical condition and cultures to further adjust medication if needed Thank you for this consultation we will follow the patient along with you Dictation was produced using [employer] dictation software. please excuse any grammatical, word or spelling errors. Time with Patient: Greater than 30
[2023-09-25] MEDS: ACYCLOVIR SODIUM 500 MG in SODIUM CHLORIDE 0.9% 100 ML IVPB SCH (23:19)
[2023-09-26] MEDS: ENOXAPARIN 40 MG/0.4 ML SYRINGE SQ SCH (08:54)
[2023-09-26] MEDS: PANTOPRAZOLE 40 MG TABLET PO SCH (08:54)
[2023-09-26 10:43] LABS: HGB 13.7 g/dL (13.0-17.0); MCH 30.9 pg (27.0-32.0); MCHC 33.4 g/dL (32.0-37.0); MCV 92.3 FL (80.0-97.0); Mean Platelet Volume 9.9 FL (9.5-12.2); NRBC Per 100 WBC 0 X 10*3/uL (0.00-0.01); Platelet Count 108 X 10*3/uL (140-440); RBC 4.44 X 10*6/uL (4.40-5.60); RDW 13.3 % (11.5-14.5); WBC 7.89 X 10*3/uL (4.50-10.00)
[2023-09-26 11:09] LABS: ALT 24 U/L (10-49); AST 31 U/L (14-35); Albumin 3.9 g/dL (3.8-4.9); Alkaline Phosphatase 61 U/L (41-126); BUN/Creat Ratio 15.12 Ratio (12.00-20.00); Blood Urea Nitrogen 12.1 mg/dL (9.0-27.0); Calcium 8.5 mg/dL (8.7-10.3); Carbon Dioxide 22.1 mmol/L (21.6-31.8); Chloride 103 mmol/L (96-109); Globulin 2.3 g/dL (1.6-3.3); Glucose 149 mg/dL (70-110); Potassium 4.2 mmol/L (3.5-5.5); Sodium 136 mmol/L (135-145); Total Bilirubin 0.5 mg/dL (0.3-1.2); Total Protein 6.2 g/dL (6.2-8.2)
[2023-09-26 11:19] LABS: Basophils # (A) 0.03 X 10*3/uL (0.00-0.10); Basophils % (A) 0.4 %; Eosinophils # (A) 0.02 X 10*3/uL (0.04-0.35); Eosinophils % (A) 0.3 %; Lymphocytes # (A) 1.68 X 10*3/uL (0.90-5.00); Lymphocytes % (A) 21.3 %; Monocytes # (A) 1.29 X 10*3/uL (0.20-1.00); Monocytes % (A) 16.3 %; Neutrophils # (A) 4.84 X 10*3/uL (1.80-7.70); Neutrophils % (A) 61.3 %
--- NOTE | 2023-09-26 16:22 | P.PN ---
Subjective Progress Note Date: 09/26/23 Principal diagnosis: Reason for follow-up is left cheek shingles cellulitis/dental infection Patient is a 68-year-old male with a past medical history significant for cirrhosis of the liver, current everyday smoker recently did have a multiple tooth extraction patient starting developing swelling and rash to the left cheek area, diagnosed with shingles presented to hospital worsening pain swelling and redness. On today's evaluation that is 09/26/2023,the patient did have a low-grade fever 100.1 last night the patient is afebrile since then, patient is on room air not requiring supplemental oxygen and denies any shortness of breath no chest pain or cough.Patient denies having any nausea or vomiting, no abdominal pain and no diarrhea mention the left-sided cheek swelling redness slightly decreased and is drying out. Patient did have white count of 7.89 creatinine 0.8 Objective - Vital Signs Vital signs: Vital Signs Temp 98.1 F 09/26/23 07:25 Pulse 68 09/26/23 07:25 Resp 17 09/26/23 07:25 BP 135/69 09/26/23 07:25 Pulse Ox 97 09/26/23 07:25 FiO2 Intake & Output 09/25/23 09/26/23 09/26/23 18:59 06:59 18:59 Weight 53.524 kg Other: # Voids 2 - Exam GENERAL DESCRIPTION: An elderly male lying in bed in no distress HEENT: Left-sided facial redness decreased rash is drying out still have significant inflammatory changes to the hard palate inside the mouth RESPIRATORY SYSTEM: Unlabored breathing , decreased breath sounds at bases HEART: S1 S2 regular rate and rhythm , ABDOMEN: Soft , no tenderness EXTREMITIES: No edema feet - Labs CBC & Chem 7: 09/26/23 07:18 09/26/23 07:15 Labs: Abnormal Lab Results - Last 24 Hours (Table) 09/25/23 09/25/23 09/26/23 Range/Units 12:52 12:52 07:15 Plt Count 106 L (150-450) k/uL Monocytes # (0.20-1.00) X 10*3/uL Eosinophils # (0.04-0.35) X 10*3/uL Sodium 136 L (137-145) mmol/L Carbon Dioxide 21 L (22-30) mmol/L Creatinine 0.56 L (0.66-1.25) mg/dL Glucose 107 H 149 H (74-99) mg/dL Calcium 8.5 L (8.7-10.3) mg/dL 09/26/23 Range/Units 07:18 Plt Count 108 L (150-450) k/uL Monocytes # 1.29 H (0.20-1.00) X 10*3/uL Eosinophils # 0.02 L (0.04-0.35) X 10*3/uL Sodium (137-145) mmol/L Carbon Dioxide (22-30) mmol/L Creatinine (0.66-1.25) mg/dL Glucose (74-99) mg/dL Calcium (8.7-10.3) mg/dL Assessment and Plan (1) Facial cellulitis Current Visit: Yes Status: Acute Code(s): L03.211 - CELLULITIS OF FACE SNOMED Code(s): 948229038 (2) Dental infection Current Visit: Yes Status: Acute Code(s): K04.7 - PERIAPICAL ABSCESS WITHOUT SINUS SNOMED Code(s): 599581425 (3) Herpes zoster Current Visit: Yes Status: Acute Code(s): B02.9 - ZOSTER WITHOUT COMPLICATIONS SNOMED Code(s): 1230534 Plan: 1patient presented to hospital with extensive rash to the left facial area in the distribution of the maxillary division of the facial nerve concerning for herpes zoster. Patient did have significant erythema and concerning for secondary bacterial cellulitis also noted to have significant ulceration to the upper palate with a possible component of dental infection/abscess 2-patient did have a low-grade fever last night that has resolved patient is currently covered with IV acyclovir and Unasyn to continue and watch his kidney function closely Dictation was produced using [employer] dictation software. please excuse any grammatical, word or spelling errors. Time with Patient: Less than 30
[2023-09-27 09:15] LABS: HCT 38.3 % (39.6-50.0); HGB 12.8 g/dL (13.0-17.0); MCH 31.1 pg (27.0-32.0); MCHC 33.4 g/dL (32.0-37.0); MCV 93.2 FL (80.0-97.0); Mean Platelet Volume 10.2 FL (9.5-12.2); NRBC Per 100 WBC 0 X 10*3/uL (0.00-0.01); Platelet Count 131 X 10*3/uL (140-440); RBC 4.11 X 10*6/uL (4.40-5.60); RDW 13.3 % (11.5-14.5); WBC 7.56 X 10*3/uL (4.50-10.00)
[2023-09-27 09:24] LABS: ALT 22 U/L (10-49); AST 24 U/L (14-35); Albumin 3.6 g/dL (3.8-4.9); Albumin/Globulin Ratio 1.71 Ratio (1.60-3.17); Alkaline Phosphatase 55 U/L (41-126); BUN/Creat Ratio 13.43 Ratio (12.00-20.00); Blood Urea Nitrogen 9.4 mg/dL (9.0-27.0); Calcium 8.3 mg/dL (8.7-10.3); Carbon Dioxide 25.3 mmol/L (21.6-31.8); Chloride 105 mmol/L (96-109); Globulin 2.1 g/dL (1.6-3.3); Glucose 93 mg/dL (70-110); Sodium 140 mmol/L (135-145); Total Bilirubin 0.3 mg/dL (0.3-1.2); Total Protein 5.7 g/dL (6.2-8.2)
[2023-09-27 10:37] LABS: Basophils # (M) 0 X 10*3/uL (0.00-0.10); Eosinophils # (M) 0.08 X 10*3/uL (0.04-0.35); Lymphocytes # (M) 2.95 X 10*3/uL (0.90-5.00); Metamyelocytes % 1 % (0-0); Monocytes # (M) 0.98 X 10*3/uL (0.20-1.00); Neutrophils # (M) 3.48 X 10*3/uL (1.80-7.70); Neutrophils % (M) 46 %
--- NOTE | 2023-09-27 13:58 | P.PN ---
Subjective Progress Note Date: 09/27/23 Principal diagnosis: Reason for follow-up is left cheek shingles cellulitis/dental infection Patient is a 68-year-old male with a past medical history significant for cirrhosis of the liver, current everyday smoker recently did have a multiple tooth extraction patient starting developing swelling and rash to the left cheek area, diagnosed with shingles presented to hospital worsening pain swelling and redness. On today's evaluation that is 09/27/2023, the patient continues to be afebrile, the patient is on room air and breathing comfortably, the Pt denies having any chest pain or cough, the patient denies having any abdominal pain no vomiting or any diarrhea patient swelling and red rash to the left cheek has decreased intensity patient is also controlled. Patient did have white count 7.56 creatinine 0.7 Objective - Vital Signs Vital signs: Vital Signs Temp 98.6 F 09/27/23 07:04 Pulse 64 09/27/23 07:04 Resp 18 09/27/23 07:04 BP 127/64 09/27/23 07:04 Pulse Ox 95 09/27/23 07:04 FiO2 Intake & Output 09/26/23 09/27/23 09/27/23 18:59 06:59 18:59 Other: # Voids 3 5 - Exam GENERAL DESCRIPTION: An elderly male lying in bed in no distress HEENT: Left-sided facial redness decreased rash is drying out still have significant inflammatory changes to the hard palate and also around the upper teeth concerning for an abscess RESPIRATORY SYSTEM: Unlabored breathing , decreased breath sounds at bases HEART: S1 S2 regular rate and rhythm , ABDOMEN: Soft , no tenderness EXTREMITIES: No edema feet - Labs CBC & Chem 7: 09/27/23 06:11 09/27/23 06:11 Labs: Abnormal Lab Results - Last 24 Hours (Table) 09/26/23 09/26/23 Range/Units 07:15 07:18 Plt Count 108 L (140-440) X 10*3/uL Monocytes # 1.29 H (0.20-1.00) X 10*3/uL Eosinophils # 0.02 L (0.04-0.35) X 10*3/uL Glucose 149 H (70-110) mg/dL Calcium 8.5 L (8.7-10.3) mg/dL Microbiology - Last 24 Hours (Table) 09/25/23 20:32 Blood Culture - Preliminary Blood Assessment and Plan (1) Facial cellulitis Current Visit: Yes Status: Acute Code(s): L03.211 - CELLULITIS OF FACE SNOMED Code(s): 861170667 (2) Dental infection Current Visit: Yes Status: Acute Code(s): K04.7 - PERIAPICAL ABSCESS WITHOUT SINUS SNOMED Code(s): 831279805 (3) Herpes zoster Current Visit: Yes Status: Acute Code(s): B02.9 - ZOSTER WITHOUT COMPLICATIONS SNOMED Code(s): 6663436 Plan: 1patient presented to hospital with extensive rash to the left facial area in the distribution of the maxillary division of the facial nerve concerning for herpes zoster. Patient did have significant erythema and concerning for secondary bacterial cellulitis also noted to have significant ulceration to the upper palate with a possible component of dental abscess and would benefit from oral surgery evaluation for possible extraction and drainage of the abscess discussed with the admitting team will order consultation with rach Maritnez with the Unasyn 2-patient did have a low-grade fever last night that has resolved patient is cur rently covered with IV acyclovir and watch his kidney function closely Dictation was produced using [employer] dictation software. please excuse any grammatical, word or spelling errors. Time with Patient: Less than 30
--- NOTE | 2023-09-27 18:51 | P.GSCN ---
History of Present Illness Consult date: 09/27/23 Reason for Consult: Rule out dental abscess Requesting physician: Pilar Arana (Infectious disease) History of present illness: Patient presents 3 days after noticing rash on his left cheek periorbital area as well as in his mouth. Patient reported having several teeth pulled approximately [address] Mona Julian in [facility]. 1 week after the extractions he noticed this burning and pain in his gums. And recently purulence and blisters on his face. His first op was at Dr. Julian's office asking about an infection and she said that it looked like shingles and he went to a batch blender who then treated him for shingles and he did not get better. He then went to his primary care physician who referred him to the emergency room. Patient reports he had a test done on his eye while he was in the emergency room 2 days ago involving a black light. He denies any vision changes at this time. Does report pain in his mouth which is getting better since his hospitalization and being started on IV antivirals and antibiotics. Review of Systems As per HPI Past Medical History Past Medical History: Liver Disease Additional Past Medical History / Comment(s): cirrhosis of liver History of Any Multi-Drug Resistant Organisms: None Reported Past Surgical History: No Surgical Hx Reported Past Anesthesia/Blood Transfusion Reactions: No Reported Reaction Past Psychological History: No Psychological Hx Reported Smoking Status: Current every day smoker Past Alcohol Use History: Occasional, Rare Past Drug Use History: None Reported - Past Family History Mother Family Medical History: Cancer, Diabetes Mellitus Medications and Allergies Home Medications Medication Instructions Recorded Confirmed Type lidocaine HCL [lidocaine HCL 5 ml MUCOUS MEM TID PRN 09/25/23 09/25/23 History Viscous] valACYclovir HCL [Valtrex] 1,000 mg PO TID 09/25/23 09/25/23 History Allergies Allergy/AdvReac Type Severity Reaction Status Date / Time No Known Allergies Allergy Verified 09/25/23 15:04 Surgical - Exam Vital Signs Temp Pulse Resp BP Pulse Ox 98.6 F 80 16 164/78 98 09/25/23 12:07 09/25/23 12:07 09/25/23 12:07 09/25/23 12:07 09/25/23 12:07 Patient up in bed alert and oriented x 3 good historian. Does have multiple crusted lesions of the left face limited to the distribution of the second branch of cranial nerve V. They stop at the midline very well demarcated continue into the mouth including the palate the gums and the lips. Several recent extraction sites including areas of the upper left appear to be healing well. Patient's soft palate is involved. does not appear to involve the posterior pharynx does not involve the floor the mouth of the tongue. No trouble swallowing no trouble breathing. No swelling noted. No obvious signs of bacterial infection or abscess Results - Labs 09/27/23 06:11 09/27/23 06:11 Abnormal Lab Results - Last 24 Hours (Table) 09/27/23 09/27/23 Range/Units 06:11 06:11 RBC 4.11 L (4.40-5.60) X 10*6/uL Hgb 12.8 L (13.0-17.0) g/dL Hct 38.3 L (39.6-50.0) % Plt Count 131 L (140-440) X 10*3/uL Calcium 8.3 L (8.7-10.3) mg/dL Total Protein 5.7 L (6.2-8.2) g/dL Albumin 3.6 L (3.8-4.9) g/dL Microbiology - Last 24 Hours (Table) 09/25/23 20:32 Blood Culture - Preliminary Blood Diabetes panel 09/27/23 Range/Units 06:11 Sodium 140 (135-145) mmol/L Potassium 4.0 (3.5-5.5) mmol/L Chloride 105 (96-109) mmol/L Carbon Dioxide 25.3 (21.6-31.8) mmol/L BUN 9.4 (9.0-27.0) mg/dL Creatinine 0.7 (0.6-1.5) mg/dL Glucose 93 (70-110) mg/dL Calcium 8.3 L (8.7-10.3) mg/dL AST 24 (14-35) U/L ALT 22 (10-49) U/L Alkaline Phosphatase 55 (41-126) U/L Total Protein 5.7 L (6.2-8.2) g/dL Albumin 3.6 L (3.8-4.9) g/dL Calcium panel 09/27/23 Range/Units 06:11 Calcium 8.3 L (8.7-10.3) mg/dL Albumin 3.6 L (3.8-4.9) g/dL Pituitary panel 09/27/23 Range/Units 06:11 Sodium 140 (135-145) mmol/L Potassium 4.0 (3.5-5.5) mmol/L Chloride 105 (96-109) mmol/L Carbon Dioxide 25.3 (21.6-31.8) mmol/L BUN 9.4 (9.0-27.0) mg/dL Creatinine 0.7 (0.6-1.5) mg/dL Glucose 93 (70-110) mg/dL Calcium 8.3 L (8.7-10.3) mg/dL Adrenal panel 09/27/23 Range/Units 06:11 Sodium 140 (135-145) mmol/L Potassium 4.0 (3.5-5.5) mmol/L Chloride 105 (96-109) mmol/L Carbon Dioxide 25.3 (21.6-31.8) mmol/L BUN 9.4 (9.0-27.0) mg/dL Creatinine 0.7 (0.6-1.5) mg/dL Glucose 93 (70-110) mg/dL Calcium 8.3 L (8.7-10.3) mg/dL Total Bilirubin 0.3 (0.3-1.2) mg/dL AST 24 (14-35) U/L ALT 22 (10-49) U/L Alkaline Phosphatase 55 (41-126) U/L Total Protein 5.7 L (6.2-8.2) g/dL Albumin 3.6 L (3.8-4.9) g/dL - Imaging Comments: Reviewed several cross-sections of the face CT noticed the maxillary sinuses were both clear no large abscesses noted adjacent to the teeth. Evidence of recent extractions which correlated clinically Assessment and Plan Assessment: Patient has well-demarcated lesions of his left cheek face nose as well as palate gums lips and buccal mucosa consistent with shingles. No evidence of dental abscess noted. Plan: Patient reports feeling better since admission to the hospital and suspect the IV acyclovir is working better than the oral version. Patient did report ability to eat but recommend continued pushing fluids and nourishment due to the pain of the shingles. Patient reported a emergency room physician looking at his eye but recommend continue observation for potential complications in the eye with the shingles. Patient does have other teeth that will need to be pulled in the future recommended the patient be clear of the shingles at least 2 weeks prior to extraction and discussed the risk of an extraction potentially exacerbating as shingles relapse. Recommend the patient come see me as outpatient in my office for a problem focused exam as well as a new x-ray to evaluate additional teeth for extraction. Contact information left with patient Time with Patient: Greater than 30
--- NOTE | 2023-09-27 19:13 | CT ---
EXAMINATION TYPE: CT Panorex DATE OF EXAM: 09/27/2023 COMPARISON: None HISTORY: 68-year-old male Tooth abscess TECHNIQUE: CT Panorex images generated from prior CT facial bone scan. A conventional Panorex image i s included. Coronal and sagittal reconstructions performed. CT DLP: 1400.4 mGycm Automated exposure control for dose reduction was used. FINDINGS: Right mandible: Dental caries eroding the crown of the first premolar. The second premolar is nearly completely destroyed. Large dental caries eroding half of the first molar. Second molar shows near complete erosion/destruction. Left mandible: The last molar is near completely eroded/destroyed. There is overlying prominent soft tissue swelling . The remaining molars are absent. Maxilla: Scattered dental amalgam. Partially edentulous. On the left, one of the retained molars shows a small periapical lucency which may have minimal dehis cence into the floor of the maxillary sinus. Some associated moderate lobulated mucosal thickening he re. Otherwise, no large periapical lucency is seen. There appear to be prominent lymph nodes in the left upper neck measuring up to 1.5 cm probably react farhana. Left submandibular space lymph nodes measure up to 1.4 cm. Additional moderate mucosal thickening anterior left ethmoid air cells. IMPRESSION: 1. LARGE DENTAL CARIES AND PERIODONTAL DISEASE OUTLINED ABOVE. Prominent soft tissue swelling over lying the destroyed left mandibular posterior molar. 2. Suspect reactive lymph nodes in the left upper neck measuring up to 1.5 cm. 3. Moderate lobulated mucosal thickening along the floor of the left maxillary sinus may be reactive to a small periapical lucency involving a retained molar. There may be minimal bony dehiscence into t he sinus floor.
[2023-09-28 11:07] LABS: HGB 12.9 g/dL (13.0-17.0); MCHC 33.1 g/dL (32.0-37.0); MCV 93.8 FL (80.0-97.0); NRBC Per 100 WBC 0 X 10*3/uL (0.00-0.01); Platelet Count 145 X 10*3/uL (140-440); RBC 4.16 X 10*6/uL (4.40-5.60); RDW 13.3 % (11.5-14.5); WBC 8.51 X 10*3/uL (4.50-10.00)
[2023-09-28 11:26] LABS: BUN/Creat Ratio 15.14 Ratio (12.00-20.00); Blood Urea Nitrogen 10.6 mg/dL (9.0-27.0); Chloride 105 mmol/L (96-109); Glucose 88 mg/dL (70-110); Potassium 4.2 mmol/L (3.5-5.5); Sodium 137 mmol/L (135-145)
[2023-09-28 11:27] LABS: Calcium 8.5 mg/dL (8.7-10.3); Carbon Dioxide 23.7 mmol/L (21.6-31.8)
[2023-09-28 11:42] LABS: Basophils # (A) 0.04 X 10*3/uL (0.00-0.10); Basophils % (A) 0.5 %; Eosinophils # (A) 0.05 X 10*3/uL (0.04-0.35); Eosinophils % (A) 0.6 %; Lymphocytes # (A) 2.44 X 10*3/uL (0.90-5.00); Lymphocytes % (A) 28.7 %; Monocytes # (A) 0.95 X 10*3/uL (0.20-1.00); Monocytes % (A) 11.2 %; Neutrophils # (A) 4.99 X 10*3/uL (1.80-7.70); Neutrophils % (A) 58.5 %
--- NOTE | 2023-09-28 18:39 | P.PN ---
Subjective Progress Note Date: 09/27/23 68-year-old male with a past medical history significant for cirrhosis of the liver, current everyday smoker recently did have a multiple tooth extraction patient starting developing swelling and rash to the left cheek area the pain has been going on for about 3 to 4 days patient has been complaining of significant burning and sharp pain to the affected area moderate to severe intensity without any radiation patient mention he did went to his dentist concerning for possible dental infection however he was diagnosed with shingles and sent to compliance reviewer with the patient was given a dose of IM steroid and B12 injection patient will be started on Valtrex the patient taken only 2 doses however now presenting to the [facility] ER for worsening swelling redness to the left facial area along with the pain patient has been eval by the ER physician on presentation to the hospital patient was afebrile patient was not tachycardic hypotensive or hypoxic he did have white count 7.3 creatinine 0.56 patient was started on IV acyclovir Objective - Vital Signs Vital signs: Vital Signs Temp 99.1 F 09/27/23 15:27 Pulse 67 09/27/23 15:27 Resp 18 09/27/23 15:27 BP 152/73 09/27/23 15:27 Pulse Ox 97 09/27/23 15:27 FiO2 Intake & Output 09/26/23 09/27/23 09/27/23 18:59 06:59 18:59 Other: # Voids 3 5 - Exam General appearance: alert, in no apparent distress Head exam: Present: atraumatic, normocephalic, normal inspection Eye exam: Present: PERRL, EOMI, other (erythematous lower lid margin, fluorescien staining showed no visible corneal abnormality). Absent: scleral icterus, conjunctival injection, periorbital swelling ENT exam: Present: TM's normal bilaterally, normal external ear exam, other (Numerous vesicular lesions on the roof of of the patient's mouth on the left upper palate and on the patient's left cheek). Absent: normal exam, normal oropharynx, mucous membranes moist Respiratory exam: Present: normal lung sounds bilaterally. Absent: respiratory distress, wheezes, rales, rhonchi, stridor Cardiovascular Exam: Present: regular rate, normal rhythm, normal heart sounds. Absent: systolic murmur, diastolic murmur, rubs, gallop, clicks Back exam: Present: normal inspection Neurological exam: Present: alert, oriented X3 Psychiatric exam: Present: normal affect, normal mood Skin exam: Present: warm, dry, rash, vesicles, other (Numerous vesicular lesions on the roof of of the patient's mouth on the left upper palate and on the patient's left cheek). Absent: intact, normal color - Labs CBC & Chem 7: 09/28/23 06:35 09/28/23 06:35 Labs: Abnormal Lab Results - Last 24 Hours (Table) 09/27/23 09/27/23 Range/Units 06:11 06:11 RBC 4.11 L (4.40-5.60) X 10*6/uL Hgb 12.8 L (13.0-17.0) g/dL Hct 38.3 L (39.6-50.0) % Plt Count 131 L (140-440) X 10*3/uL Calcium 8.3 L (8.7-10.3) mg/dL Total Protein 5.7 L (6.2-8.2) g/dL Albumin 3.6 L (3.8-4.9) g/dL Microbiology - Last 24 Hours (Table) 09/25/23 20:32 Blood Culture - Preliminary Blood Assessment and Plan Assessment: 1. Complicated herpes zoster 2. Facial cellulitis patient presented to hospital with extensive rash to the left facial area in the distribution of the maxillary division of the facial nerve concerning for herpes zoster. Patient did have significant erythema and concerning for secondary bacterial cellulitis also noted to have significant ulceration to the upper palate with a possible component of dental infection/abscess -patient has been started on IV acyclovir 10 mg/kg every 8 hours to continue while watching his kidney function closely --Unasyn 3 g every 6 hours
--- NOTE | 2023-09-28 18:41 | P.PN ---
Subjective Progress Note Date: 09/28/23 68-year-old male with a past medical history significant for cirrhosis of the liver, current everyday smoker recently did have a multiple tooth extraction patient starting developing swelling and rash to the left cheek area the pain has been going on for about 3 to 4 days patient has been complaining of significant burning and sharp pain to the affected area moderate to severe intensity without any radiation patient mention he did went to his dentist concerning for possible dental infection however he was diagnosed with shingles and sent to delivery assistant with the patient was given a dose of IM steroid and B12 injection patient will be started on Valtrex the patient taken only 2 doses however now presenting to the [facility] ER for worsening swelling redness to the left facial area along with the pain patient has been eval by the ER physician on presentation to the hospital patient was afebrile patient was not tachycardic hypotensive or hypoxic he did have white count 7.3 creatinine 0.56 patient was started on IV acyclovir -- Patient is seen and evaluated with family numbers at bedside; reports marked improvement in swelling on left side of the face and improvement in eye irritation; anxious to go home Labs are stable with WBC of 8.5, hemoglobin of 12.9 and platelet count of 145, sodium 137, potassium 4.2, BUNs/creatinine of 10.6/0.7 -- Patient remains on IV acyclovir and Unasyn per ID recommendations -Await final recommendations from ID prior to discharge Objective - Vital Signs Vital signs: Vital Signs Temp 97.8 F 09/28/23 08:00 Pulse 62 09/28/23 08:00 Resp 16 09/28/23 08:00 BP 137/72 09/28/23 08:00 Pulse Ox 98 09/28/23 08:00 FiO2 Intake & Output 09/27/23 09/28/23 09/28/23 18:59 06:59 18:59 Intake Total 1400 Balance 1400 Intake: Intake, IV Titration 1400 Amount Acyclovir Sodium 500 mg 200 In Sodium Chloride 0.9% 100 ml @ 100 mls/hr IVPB Q8HR [facility] Rx#:[id number] Ampicillin-Sulbactam 3 gm 200 In Sodium Chloride 0.9% 100 ml @ 200 mls/hr IVPB Q6HR [facility] Rx#:[id number] Sodium Chloride 0.9% 1, 1000 000 ml @ 100 mls/hr IV . Q10H [facility] Rx#:[id number] Other: # Voids 2 - Exam General appearance: alert, in no apparent distress Head exam: Present: atraumatic, normocephalic, normal inspection Eye exam: Present: PERRL, EOMI, other (erythematous lower lid margin, fluorescien staining showed no visible corneal abnormality). Absent: scleral icterus, conjunctival injection, periorbital swelling ENT exam: Present: TM's normal bilaterally, normal external ear exam, other (Numerous vesicular lesions on the roof of of the patient's mouth on the left upper palate and on the patient's left cheek). Absent: normal exam, normal oropharynx, mucous membranes moist Respiratory exam: Present: normal lung sounds bilaterally. Absent: respiratory distress, wheezes, rales, rhonchi, stridor Cardiovascular Exam: Present: regular rate, normal rhythm, normal heart sounds. Absent: systolic murmur, diastolic murmur, rubs, gallop, clicks Back exam: Present: normal inspection Neurological exam: Present: alert, oriented X3 Psychiatric exam: Present: normal affect, normal mood Skin exam: Present: warm, dry, rash, vesicles, other (Numerous vesicular lesions on the roof of of the patient's mouth on the left upper palate and on the patient's left cheek). Absent: intact, normal color - Labs CBC & Chem 7: 09/28/23 06:35 09/28/23 06:35 Labs: Abnormal Lab Results - Last 24 Hours (Table) 09/28/23 09/28/23 Range/Units 06:35 06:35 RBC 4.16 L (4.40-5.60) X 10*6/uL Hgb 12.9 L (13.0-17.0) g/dL Hct 39.0 L (39.6-50.0) % Calcium 8.5 L (8.7-10.3) mg/dL Microbiology - Last 24 Hours (Table) 09/25/23 20:32 Blood Culture - Preliminary Blood Assessment and Plan Assessment: 1. Complicated herpes zoster 2. Facial cellulitis patient presented to hospital with extensive rash to the left facial area in the distribution of the maxillary division of the facial nerve concerning for herpes zoster. Patient did have significant erythema and concerning for secondary bacterial cellulitis also noted to have significant ulceration to the upper palate with a possible component of dental infection/abscess -patient has been started on IV acyclovir 10 mg/kg every 8 hours to continue while watching his kidney function closely --Unasyn 3 g every 6 hours
[2023-09-29 07:52] VITALS: RESP 20
--- NOTE | 2023-09-29 08:54 | P.HPIM ---
History of Present Illness H&P Date: 09/26/23 Chief Complaint: Left facial zoster with cellulitis and possible dental abscess HISTORY OF PRESENT ILLNESS: This is a 5-year-old male with a previous medical history significant for cirrhosis of the liver, mixed hyperlipidemia, history of chronic tobacco use and dependence, patient developed to have significant pain in the left side of his face associated with increased burning sensation 3 to 4 days ago, he went to his dentist patient did have couple of his teeth extracted 2 possible dental abscess, patient came back to his dentist thinking that this is coming from his dental surgery, he was found to have significant vesicular rash on the erythema base with significant irritation and abscess formation in his mouth, he was sent for dermatology who gave him a shot of B12 and a steroid shot and [place] [facility] [place], initially was supposed to be started on Valtrex 1 g orally 3 times every day for 7 days, however because of the extent of the cellulitis as well as because of a questionable oral abscess, he was sent to the emergency department, he was started on acyclovir at 10 mg/kg body weight every 8 hours was 500 mg IV piggyback every [address] a [address] scan of the brain did not show evidence of acute abnormalities, CT of the facial bones did not show evidence of any destruction except for soft tissue swelling with no evidence of preseptal cellulitis, patient was admitted to the hospital he was seen in consultation by infectious disease, who started him on Unasyn 3 g IV piggyback every 6 hours awaiting the result of the culture. REVIEW OF SYSTEMS: Constitutional: No documented fever, no chills, no night sweats. positive for weight loss. No weakness, fatigue or lethargy. No daytime sleepiness. EENT: positive for headache. No blurred vision or double vision, no loss of vision. No loss of Hearing, no ringing in the ears, no dizziness. No nasal drainage or congestion, positive for sore mouth Lungs: No shortness of breath, no cough, no sputum production. No wheezing. Reports dyspnea with activity. Cardiovascular: No chest pain, no lower extremity edema. No palpitations. No paroxysmal nocturnal dyspnea. No orthopnea. No lightheadedness or dizziness. No syncopal episodes. Abdominal: Reports no abdominal pain. No nausea, vomiting. No diarrhea. No constipation. No bloody or tarry stools reports loss of appetite. Genitourinary: No dysuria, increased frequency, urgency. No urinary retention. Musculoskeletal: No myalgias. No muscle weakness, no gait dysfunction, no frequent falls. No back pain. No neck pain. Integumentary: vesicular lesions on erythema base to the left side of his face with cellulitis and swelling Neurologic: No aphasia. No facial droop. No change in mentation. No head injury. positive for headache. No paralysis, positive for sharp pain Psychiatric: No depression. No anxiety. No mood swings. Endocrine: No abnormal blood sugars. No weight change. PAST MEDICAL HISTORY: Liver cirrhosis without ascites. Mixed hyperlipidemia. Chronic tobacco use and dependence. Osteoarthritis. PAST SURGICAL HISTORY: EGD 12/01/2019 Colonoscopy 12/01/2019 Paracentesis. SOCIAL HISTORY: Patient smokes a pack every day since the age of 16, he is not ready to quit sm oking, he denies any alcohol ingestion, no drug use or abuse. FAMILY HISTORY: Father at age of 83 from CVA, mother at age of 70 from colon cancer, patient had 1 brother who at the age of 62 from overdose on fentanyl, patient has 1 sister 69-year-old healthy and 1 son healthy no major medical problems. PHYSICAL EXAMINATION: General: 68-year-old male laying down in bed in no apparent distress. HEENT: Head is atraumatic, normocephalic, pupils were equal round reactive to light and recommendation, extraocular muscle movement were intact, sclera nonicteric, there is significant vesicular eruptions to the left side of the face with increased erythema to the left side of the face as well as the left orbit, as well as increased necrotic denuded tissue in the oral area due to invasion of herpes zoster and a prior dental abscesses. Neck: Supple, no JVP, normal carotid upstroke bilaterally, no lymphadenopathy. Chest: Decreased breath sounds at the bases, few rhonchi, no expiratory wheezes, no chest wall tenderness, no intercostal retractions. Heart: First heart sound is normal, second heart sound is normal there is systolic ejection murmur 2/6 located in the left sternal border. Abdomen: Soft, nontender, nondistended, positive bowel sounds. Extremities: There is no edema no calf tenderness DP +2 bilaterally. Neurologic examination: Patient is awake alert and oriented x3 , cranial nerves II-12 appear grossly intact, muscle power were 5 out of 5 in upper extremities and 5 out of 5 in bilateral lower extremities, deep tendon reflexes normal bilaterally. Skin examination: Vesicular eruption on erythema base to the left side of the face involving the periorbital area and increased swelling and cellulitis to the left side of the face as well as denuded area to the the roof of the mouth on the side of the cheek due to infection. ASSESSMENT AND PLAN: 1. Herpes zoster with facial cellulitis and possible oral abscess. Patient did have a dental procedure few days ago, continue patient on Unasyn 3 g IV piggyback every 6 hours, continue acyclovir 500 mg IV piggyback every 8 hours, infectious disease consultation appreciated, we will obtain ophthalmology consultation from Dr. Matt for further evaluation patient did have the fluorescein testing done in the ER there is no evidence of any herpetic lesions in the eye, however we will continue to ask for some allergy evaluation for further recommendation. Continue patient on current pain management, continue Toradol 15 mg IV push every 6 hours as needed, continue morphine for pain control as well, use Peridex oral solution as an antiseptic solution. Obtain blood cultures. 2. Postherpetic neuralgia. Patient did receive gabapentin 300 mg in the emergency department, we will start him on 100 mg orally twice every day for now. Continue other pain management including Toradol 15 mg IV push every 6 hours, continue patient also on morphine for pain control as needed. 3. Liver cirrhosis without ascites. Patient has been under the care of Dr. Mckoy, his EGD and colonoscopy are up-to-date last one was 2019. 4. Mixed hyperlipidemia. Continue atorvastatin 40 mg orally once every day. 5. Osteoarthritis. Continue current pain management. 6. DVT prophylaxis. Continue Lovenox 40 mg subcutaneously every 24 hours. 7. GI prophylaxis. Continue Protonix 40 mg orally once every day. 8. Admit to inpatient. Estimated length of stay 2 midnights. 9. Patient is full code. Past Medical History Past Medical History: Liver Disease Additional Past Medical History / Comment(s): cirrhosis of liver History of Any Multi-Drug Resistant Organisms: None Reported Past Surgical History: No Surgical Hx Reported Past Anesthesia/Blood Transfusion Reactions: No Reported Reaction Past Psychological History: No Psychological Hx Reported Smoking Status: Current every day smoker Past Alcohol Use History: Occasional, Rare Past Drug Use History: None Reported - Past Family History Mother Family Medical History: Cancer, Diabetes Mellitus Medications and Allergies Home Medications Medication Instructions Recorded Confirmed Type lidocaine HCL [lidocaine HCL 5 ml MUCOUS MEM TID PRN 09/25/23 09/25/23 History Viscous] valACYclovir HCL [Valtrex] 1,000 mg PO TID 09/25/23 09/25/23 History Allergies Allergy/AdvReac Type Severity Reaction Status Date / Time No Known Allergies Allergy Verified 09/25/23 15:04 Physical Exam Vitals: Vital Signs Temp Pulse Pulse Resp BP BP Pulse Ox 09/26/23 14:00 99 F 78 16 123/63 98 09/26/23 07:25 98.1 F 68 17 135/69 97 09/26/23 00:30 98.8 F 68 15 142/61 96 09/25/23 19:23 100.1 F H 73 16 157/86 97 09/25/23 18:08 72 16 127/78 99 Intake and Output 09/25/23 09/26/23 09/26/23 22:59 06:59 14:59 Other: # Voids 2 Weight 53.524 kg Results CBC & Chem 7: 09/28/23 06:35 09/28/23 06:35 Labs: Abnormal Lab Results - Last 24 Hours (Table) 09/26/23 09/26/23 Range/Units 07:15 07:18 Plt Count 108 L (140-440) X 10*3/uL Monocytes # 1.29 H (0.20-1.00) X 10*3/uL Eosinophils # 0.02 L (0.04-0.35) X 10*3/uL Glucose 149 H (70-110) mg/dL Calcium 8.5 L (8.7-10.3) mg/dL Thrombosis Risk Factor Assmnt - Choose All That Apply Any of the Below Risk Factors Present?: No
[2023-09-29 09:13] LABS: BUN/Creat Ratio 17.33 Ratio (12.00-20.00); Blood Urea Nitrogen 10.4 mg/dL (9.0-27.0); Calcium 8.3 mg/dL (8.7-10.3); Carbon Dioxide 21.6 mmol/L (21.6-31.8); Chloride 107 mmol/L (96-109); Glucose 98 mg/dL (70-110); Potassium 4.2 mmol/L (3.5-5.5); Sodium 138 mmol/L (135-145)
--- NOTE | 2023-09-29 13:28 | P.DS ---
Providers Date of admission: 09/25/23 15:14 Expected date of discharge: 09/29/23 Attending physician: Abigail Moya Consults: 09/25/23 14:40 Consult Physician Routine Consulting Provider: Uma Thomason Consult Reason/Comments: herpes zoster Do you want consulting provider notified?: Yes 09/25/23 18:40 Consult Physician Routine Consulting Provider: Mario Matt Consult Reason/Comments: Herpes Zoster Do you want consulting provider notified?: Yes 09/27/23 10:16 Consult Physician Routine Consulting Provider: Merritt Arnett Consult Reason/Comments: L upper infected teeth with abscess Do you want consulting provider notified?: Yes Primary care physician: Abigail Moya Hospital Course: 68-year-old male with a past medical history significant for cirrhosis of the liver, current everyday smoker recently did have a multiple tooth extraction patient starting developing swelling and rash to the left cheek area the pain has been going on for about 3 to 4 days patient has been complaining of significant burning and sharp pain to the affected area moderate to severe intensity without any radiation patient mention he did went to his dentist concerning for possible dental infection however he was diagnosed with shingles and sent to piping blocker with the patient was given a dose of IM steroid and B12 injection patient will be started on Valtrex the patient taken only 2 doses however now presenting to the [facility] ER for worsening swelling redness to the left facial area along with the pain patient has been eval by the ER physician on presentation to the hospital patient was afebrile patient was not tachycardic hypotensive or hypoxic he did have white count 7.3 creatinine 0.56 patient was started on IV acyclovir -- Patient is seen and evaluated with family numbers at bedside; reports marked improvement in swelling on left side of the face and improvement in eye irritation; anxious to go home Labs are stable with WBC of 8.5, hemoglobin of 12.9 and platelet count of 145, sodium 137, potassium 4.2, BUNs/creatinine of 10.6/0.7 -- Patient remains on IV acyclovir and Unasyn per ID recommendations -Await final recommendations from ID prior to discharge 09/28: Patient is sitting up in bed in no apparent distress, he denies any chest pain, he he has no shortness of breath, he has no fever or chills, he has no headache, he was switched to oral Augmentin 875 mg orally twice every day, patient will be switched to oral Valtrex 1 g orally 3 times every day for the next 7 days, the prescription was called from the office already, I will follow-up with the patient as an outpatient 1 week, he is to follow-up with Dr. Arnett as an outpatient in 2 weeks. Discharge diagnoses: 1. Left facial herpes zoster with facial cellulitis. 2. Postherpetic neuralgia. 3. Liver cirrhosis. 4. Osteoarthritis. 5. Chronic tobacco use and dependence. Patient Condition at Discharge: Stable Plan - Discharge Summary Discharge Rx Participant: No New Discharge Prescriptions: No Action valACYclovir HCL [Valtrex] 1,000 mg PO TID lidocaine HCL [lidocaine HCL Viscous] 5 ml MUCOUS MEM TID PRN PRN Reason: Pain Discharge Medication List lidocaine HCL [lidocaine HCL Viscous] 5 ml MUCOUS MEM TID PRN 09/25/23 [History] valACYclovir HCL [Valtrex] 1,000 mg PO TID 09/25/23 [History] Follow up Appointment(s)/Referral(s): Abigail Moya MD [Primary Care Provider] - 1-2 days
[2023-09-29 15:49] VITALS: BP 117/72; PULSE 71; TEMP 97.6
== END 2023-09-29 15:00 | disposition home or self-care (01) | DRG 866 ==
LOC: EC 12:02 → 4SSUR 15:14
PROVIDERS: ADMIT Internal Medicine; ATTEND Internal Medicine
DX: B02.8 Zoster with other complications (principal); L03.211 Cellulitis of face; K74.60 Unspecified cirrhosis of liver; F17.210 Nicotine dependence, cigarettes, uncomplicated; E78.2 Mixed hyperlipidemia; M19.90 Unspecified osteoarthritis, unspecified site; B02.29 Other postherpetic nervous system involvement
CPT/HCPCS: 36415; 70450; 70486; 80048; 80053; 85025; 87040; 96361; 96365; 99285